=== PATIENT | female | born 1990 | race Caucasian/White ===

== ENCOUNTER 2021-03-01 14:57 | Observation (INO) | payer MEDICAID ==
[2021-03-01] MEDS ORDERED: IV RINGERS,LACTATED 1000ML 1,000 ML IV SCH (15:15)
[2021-03-01 16:03] LABS: BILIRUBIN,URINE NEGATIVE (NEG); CLARITY,URINE CLOUDY; COLOR,URINE YELLOW; NITRITE,URINE NEGATIVE (NEG); PROTEIN,URINE NEGATIVE (NEG-TRACE)
[2021-03-01 16:07] LABS: BARBITURATES NEG (NEG); BENZODIAZEPINES NEG (NEG); CANNABINOIDS NEG (NEG); COCAINE NEG (NEG); METHADONE NEG (NEG); OPIATES NEG (NEG); PHENCYCLIDINE NEG (NEG)
[2021-03-01 16:08] LABS: AMPHETAMINE/METHAMPHETAMINE NEG (NEG)
[2021-03-01 16:33] LABS: BACTERIA,URINE MODERATE /HPF (0-FEW); RBC,URINE 0 /HPF (0-2); WBC,URINE 20-40 /HPF (0-4)
[2021-03-01 16:34] LABS: AMORPHOUS SEDIMENT,UR PRESENT /HPF
[2021-03-01] MEDS ORDERED: AMPICILLIN SODIUM 1 GM in IV NORMAL SALINE 50ML 50 ML IV ONE (17:00)
[2021-03-01] MEDS ORDERED: ACETAMINOPHEN 325 MG TABLET. PO ONE (17:15)
== END 2021-03-01 18:30 | disposition home or self-care (01) ==
LOC: 3 SO LND 14:57
PROVIDERS: ADMIT Obstetrics & Gynecology; ATTEND Obstetrics & Gynecology
DX: O26.892 Other specified pregnancy related conditions, second trimester (principal); R51.9 Headache, unspecified; R19.7 Diarrhea, unspecified; Z20.822 Contact with and (suspected) exposure to COVID-19; Z3A.23 23 weeks gestation of pregnancy
CPT/HCPCS: 80307; 81001; 87086; 87426; G0378; G0379; J0290; J7120; U0003; U0005; 59025; 96365

== ENCOUNTER 2021-03-22 15:05 | Emergency (ER) | payer MEDICAID ==
[~2021-03-22] VITALS: Ht 162.6 cm; Wt 56.0 kg
--- NOTE | 2021-03-22 15:24 | PHYS DOC ---
Past Medical History Past Medical History: No Pertinent History Past Surgical History: No Surgical History Smoking Status: Never Smoker Alcohol Use: None Drug Use: None General Adult EDM: Chief Complaint: SYNCOPE HPI: HPI: 30-year-old G3, P2 approximately 6 months female presents to the emergency department complaining of syncopal episode that occurred earlier today. She states that she was walking after going to the bathroom when she passed out. She states now that she feels weak. There is no seizure-like activity witnessed. Patient otherwise feels like in her normal health. She denies any drugs or alcohol. She moved from [place] and saw an STAFFING CONSULTANT in that state and states that she had a normal ultrasound and care prior to moving to [place]. The patient denies nausea, vomiting, fever, chills, chest pain, shortness of breath, abdominal pain, urinary symptoms, cough, recent trauma, or any other complaints. Review of Systems: Review of Systems: ROS otherwise negative except for what was mentioned in HPI Heart Score: C/O Chest Pain: No Current Medications: Current Medications Medications (Trade) Dose Ordered Sig/Arash Start Time Stop Time Status Last Admin Dose Admin Sodium Chloride 1,000 ml @ 1,000 mls/hr 1X ONCE 03/22/21 15:30 03/22/21 16:29 Allergies: Allergies: Allergies Coded Allergies Type Severity Reaction Last Updated Verified No Known Drug Allergies 03/01/21 No Physical Exam: PE: Constitutional: Disheveled, no acute distress. HENT: Atraumatic, bilateral external ears normal, nose normal. Eyes: PERRLA, EOMI, conjunctiva normal, no discharge. Neck: Normal range of motion, supple, no stridor. Cardiovascular: Heart rate regular rhythm. 2+ radial pulses Lungs & Thorax: No respiratory distress, symmetrical expansion. Bilateral breath sounds clear to auscultation Abdomen: Soft, no tenderness. Gravid uterus Skin: Warm, dry. Extremities: No tenderness, no cyanosis, ROM intact, no edema. Neurologic: Alert and oriented X 3, normal motor function, normal sensory function, no focal deficits noted. Non ataxic gait. GCS 15. Psychologic: Affect normal, judgment normal, mood normal. Current Patient Data: Labs: Laboratory Tests Test 03/22/21 15:12 03/22/21 15:22 03/22/21 16:32 White Blood Count 10.3 x10^3/uL (4.0-11.0) Red Blood Count 3.34 x10^6/uL (3.50-5.40) Hemoglobin 9.6 g/dL (12.0-15.5) Hematocrit 28.4 % (36.0-47.0) Mean Corpuscular Volume 85 fL (79-100) Mean Corpuscular Hemoglobin 29 pg (25-35) Mean Corpuscular Hemoglobin Concent 34 g/dL (31-37) Red Cell Distribution Width 13.1 % (11.5-14.5) Platelet Count 351 x10^3/uL (140-400) Neutrophils (%) (Auto) 76 % (31-73) Lymphocytes (%) (Auto) 18 % (24-48) Monocytes (%) (Auto) 5 % (0-9) Eosinophils (%) (Auto) 1 % (0-3) Basophils (%) (Auto) 0 % (0-3) Neutrophils # (Auto) 7.8 x10^3/uL (1.8-7.7) Lymphocytes # (Auto) 1.8 x10^3/uL (1.0-4.8) Monocytes # (Auto) 0.5 x10^3/uL (0.0-1.1) Eosinophils # (Auto) 0.1 x10^3/uL (0.0-0.7) Basophils # (Auto) 0.0 x10^3/uL (0.0-0.2) Sodium Level 137 mmol/L (136-145) Potassium Level 3.5 mmol/L (3.5-5.1) Chloride Level 102 mmol/L (98-107) Carbon Dioxide Level 20 mmol/L (21-32) Anion Gap 15 (6-14) Blood Urea Nitrogen 4 mg/dL (7-20) Creatinine 0.8 mg/dL (0.6-1.0) Estimated GFR (Cockcroft-Gault) 84.2 BUN/Creatinine Ratio 5 (6-20) Glucose Level 123 mg/dL (70-99) Calcium Level 8.4 mg/dL (8.5-10.1) Total Bilirubin 0.2 mg/dL (0.2-1.0) Aspartate Amino Transf (AST/SGOT) 12 U/L (15-37) Alanine Aminotransferase (ALT/SGPT) 19 U/L (14-59) Alkaline Phosphatase 107 U/L (46-116) Total Protein 6.2 g/dL (6.4-8.2) Albumin 2.5 g/dL (3.4-5.0) Albumin/Globulin Ratio 0.7 (1.0-1.7) Ethyl Alcohol Level < 10 mg/dL (0-10) Glucose (Fingerstick) 114 mg/dL (70-99) Urine Collection Type Unknown Urine Color Yellow Urine Clarity Clear Urine pH 6.0 (<5.0-8.0) Urine Specific [place] 1.025 (1.000-1.030) Urine Protein Negative mg/dL (NEG-TRACE) Urine Glucose (UA) Negative mg/dL (NEG) Urine Ketones (Stick) Negative mg/dL (NEG) Urine Blood Negative (NEG) Urine Nitrite Negative (NEG) Urine Bilirubin Negative (NEG) Urine Urobilinogen Dipstick 0.2 mg/dL (0.2 mg/dL) Urine Leukocyte Esterase Negative (NEG) Urine RBC 0 /HPF (0-2) Urine WBC 1-4 /HPF (0-4) Urine Squamous Epithelial Cells Mod /LPF Urine Bacteria 0 /HPF (0-FEW) Urine Mucus Marked /LPF Urine Opiates Screen Neg (NEG) Urine Methadone Screen Neg (NEG) Urine Barbiturates Neg (NEG) Urine Phencyclidine Screen Neg (NEG) Urine Amphetamine/Methamphetamine Neg (NEG) Urine Benzodiazepines Screen Neg (NEG) Urine Cocaine Screen Neg (NEG) Urine Cannabinoids Screen Neg (NEG) Urine Ethyl Alcohol Neg (NEG) Vital Signs: Vital Signs Date Time Temp Pulse Resp B/P (MAP) Pulse Ox O2 Delivery O2 Flow Rate FiO2 03/22/21 16:04 88 16 108/66 (80) 98 Room Air 03/22/21 15:34 88 16 110/74 (86) 98 03/22/21 15:05 98.4 104 115/82 (93) 98.4 Course & Med Decision Making: Course & Med Decision Making FHT: 142 patient much improved after 2L IVF, likely dehydrated, states she is going to follow up with david rice, vitals improved, no bacteruria. will dc for patient to follow with david. return precautions discussed. IUP seen on bedside US. My Orders - BROWN,NOAH M DO Procedure Category Date Status Time Cbc W Autodiff LAB 03/22/21 Complete 15:18 Comprehensive LAB 03/22/21 Complete Metabolic Panel 15:18 Ua, Cult If Indicated LAB 03/22/21 Complete 15:18 Iv Normal Saline PHA 03/22/21 Complete 1000ml Bag (Iv Sodium 15:30 Drugs Of Abuse Ur LAB 03/22/21 Complete 15:21 Ethanol LAB 03/22/21 Complete 15:21 Iv Normal Saline PHA 03/22/21 In Process 1000ml Bag (Iv Sodium 16:45 Departure Departure Impression: Primary Impression: Dehydration Disposition: HOME / SELF CARE / HOMELESS Condition: STABLE Referrals: NO PCP (PCP) Patient Instructions: Dehydration, Adult, [id number] Additional Instructions: You were seen in the emergency department and your health condition was deemed not to require admission to the hospital. It is important to realize that we can only evaluate you during the time that you are in her department. Occasionally health conditions can worsen upon leaving the emergency department. If this were to happen, please return to and allow us the opportunity to reevaluate you. It is a pleasure to take care of your health needs. Return to the ER if your symptoms worsen, do not improve, or if you develop additional symptoms that are concerning to you NOAH MACE DO Mar 22, 2021 15:24
[2021-03-22 15:25] LABS: BASO % 0 % (0-3); EOS # 0.1 x10^3/uL (0.0-0.7); EOS % 1 % (0-3); HEMATOCRIT 28.4 % (36.0-47.0); HEMOGLOBIN 9.6 g/dL (12.0-15.5); LYMPH # 1.8 x10^3/uL (1.0-4.8); LYMPH % 18 % (24-48); MEAN CORPUSCULAR HEMOGLOBIN 29 pg (25-35); MEAN CORPUSCULAR HGB CONC 34 g/dL (31-37); MEAN CORPUSCULAR VOLUME 85 fL (79-100); MONO # 0.5 x10^3/uL (0.0-1.1); MONO % 5 % (0-9); NEUT # 7.8 x10^3/uL (1.8-7.7); NEUT % 76 % (31-73); PLATELET COUNT 351 x10^3/uL (140-400); RED BLOOD COUNT 3.34 x10^6/uL (3.50-5.40); RED CELL DISTRIBUTION WIDTH 13.1 % (11.5-14.5); WHITE BLOOD COUNT 10.3 x10^3/uL (4.0-11.0)
[2021-03-22] MEDS ORDERED: IV NORMAL SALINE 1000ML BAG 1,000 ML IV ONE ×2 (15:30→16:45)
[2021-03-22 15:32] LABS: CALCIUM 8.4 mg/dL (8.5-10.1); CREATININE 0.8 mg/dL (0.6-1.0); GFR 84.2; POTASSIUM 3.5 mmol/L (3.5-5.1)
[2021-03-22 15:38] LABS: ALBUMIN 2.5 g/dL (3.4-5.0); ALBUMIN/GLOBULIN RATIO 0.7 (1.0-1.7); TOTAL BILIRUBIN 0.2 mg/dL (0.2-1.0); TOTAL PROTEIN 6.2 g/dL (6.4-8.2)
--- NOTE | 2021-03-22 16:50 | EKG ---
[facility] [address] [place] [address] Test Date: 2021-03-22 Test Time: 15:07:36 Pat Name: AGUEDA PINEDA Department: Room: Gender: F Product Safety Associate: : 1990 Requested By: BRYAN SANCHEZ Order Number: [id number] Reading MD: Hao Prakash Measurements Intervals [place] Rate: 110 P: 26 SC: 140 QRS: 64 QRSD: 70 T: 35 QT: 326 QTc: 447 Interpretive Statements SINUS TACHYCARDIA Electronically Signed On 03-24-2021 16:47:42 CDT by Hao Prakash
[2021-03-22 17:02] LABS: BILIRUBIN,URINE NEGATIVE (NEG); CLARITY,URINE CLEAR; COLOR,URINE YELLOW; NITRITE,URINE NEGATIVE (NEG); PROTEIN,URINE NEGATIVE (NEG-TRACE); UROBILINOGEN,URINE 0.2 mg/dL (0.2 mg/dL)
[2021-03-22 17:07] LABS: BACTERIA,URINE 0 /HPF (0-FEW); RBC,URINE 0 /HPF (0-2)
[2021-03-22 17:08] LABS: BARBITURATES NEG (NEG); BENZODIAZEPINES NEG (NEG); CANNABINOIDS NEG (NEG); COCAINE NEG (NEG); METHADONE NEG (NEG); OPIATES NEG (NEG); PHENCYCLIDINE NEG (NEG)
[2021-03-22 17:09] LABS: AMPHETAMINE/METHAMPHETAMINE NEG (NEG)
[2021-03-22 17:31] VITALS: BP 100/61
== END 2021-03-22 18:06 | disposition home or self-care (01) ==
LOC: ER 15:05
DX: O99.282 Endocrine, nutritional and metabolic diseases complicating pregnancy, second trimester (principal); E86.0 Dehydration; Z3A.24 24 weeks gestation of pregnancy
CPT/HCPCS: 36415; 80053; 80307; 81001; 82962; 85025; 93005; 96360; 96361; 99284; G0480; J7030

== ENCOUNTER 2021-04-14 09:38 | Emergency (ER) | payer MEDICAID ==
[~2021-04-14] VITALS: Ht 162.6 cm; Wt 61.6 kg
[2021-04-14 09:57] VITALS: BP 134/83
[2021-04-14] MEDS ORDERED: ACETAMINOPHEN 325 MG TABLET. PO ONE (10:15)
[2021-04-14] MEDS ORDERED: LIDOCAINE 2% VISCOUS 15 ML SOLUTION. SWSW ONE (10:15)
[2021-04-14] MEDS ORDERED: AMOX1TAB61 PO (10:46)
[2021-04-14] MEDS ORDERED: BENZ11.94 MM (10:46)
--- NOTE | 2021-04-14 10:47 | PHYS DOC ---
Past Medical History Past Medical History: Other Additional Past Medical Histor: fibromyalgia Past Surgical History: No Surgical History Smoking Status: Never Smoker Alcohol Use: None Drug Use: None General Adult EDM: Chief Complaint: DENTAL PROBLEM HPI: HPI: Patient is a 30 year old A0 female who presents with 2-day history of right- sided dental pain. Patient rates her pain 10/10 radiating throughout the entire right side of her face. Patient states that she has had dental problems for several years, but has been a year since has been this bad. Patient reports she moved to the area 1 month ago from [facility]. Patient does not currently have dental care. Patient denies fever, chills, eye pain, discharge, neck swelling, difficulty swallowing, difficulty breathing, chest pain, palpitations. Patient has no other complaints at this time. Review of Systems: Review of Systems: 12 systems reviewed. ROS negative except as mentioned in HPI. Heart Score: C/O Chest Pain: No Current Medications: Current Medications Medications (Trade) Dose Ordered Sig/Arash Start Time Stop Time Status Last Admin Dose Admin Acetaminophen (Tylenol) 650 mg 1X ONCE 04/14/21 10:15 04/14/21 10:16 DC 04/14/21 10:25 650 MG Lidocaine HCl (Viscous Lidocaine) 15 ml 1X ONCE 04/14/21 10:15 04/14/21 10:16 DC 04/14/21 10:25 15 ML Allergies: Allergies: Allergies Coded Allergies Type Severity Reaction Last Updated Verified No Known Drug Allergies 03/01/21 No Physical Exam: PE: Constitutional: Well developed, well nourished, non-toxic appearance. HENT: Normocephalic, atraumatic, bilateral external ears normal, oropharynx moist, very poor dentition, right upper gums swollen and erythematous, nose normal. Eyes: PERRLA, EOMI, conjunctiva normal, no discharge. Neck: Normal range of motion, no tenderness, supple, no stridor. Cardiovascular: Heart rate regular rhythm, no murmur. Lungs & Thorax: Bilateral breath sounds clear to auscultation. Current Patient Data: Vital Signs: Vital Signs Date Time Temp Pulse Resp B/P (MAP) Pulse Ox O2 Delivery O2 Flow Rate FiO2 04/14/21 09:57 97.4 74 17 134/83 (100) 98 Room Air 97.4 Course & Med Decision Making: Course & Med Decision Making Pertinent Labs and Imaging studies reviewed. (See chart for details) Patient's dental pain is chronic in nature. At this time, there is no neck/throat or orbital involvement. Due to patient's gravid status, pain management will be topical viscous lidocaine and Tylenol. On reevaluation, patient states that her pain has improved. Patient will be provided with a list of dental clinics in the area. Scripts were sent for viscous lidocaine as well as Augmentin. Patient understands and is agreeable to discharge plan. Dragon Disclaimer: Dragon Disclaimer: This electronic medical record was generated, in whole or in part, using a voice recognition dictation system. Departure Departure Impression: Primary Impression: Dental abscess Additional Impressions: Poor dentition Chronic enamel dental caries Disposition: 01 HOME / SELF CARE / HOMELESS Condition: STABLE Referrals: NO PCP (PCP) Patient Instructions: Dental Pain, [id number] Additional Instructions: You may continue to take acetaminophen according to box instructions. Do not take more than 3000 mg in a day. Please return to the emergency department if your pain is uncontrolled at home. Scripts Benzocaine/Menthol/Zinc Chlor (Orajel 3X Toothache-Gum Gel) 11.9 Gm Gel..gram. 11.9 GM MM PRN, #1 BOTTLE Prov: BRYAN SANCHEZ 04/14/21 Amoxicillin/Potassium Clav (AUGMENTIN 875-125 TABLET) 1 Each Tablet 1 TAB PO BID for 7 Days, #14 TAB 0 Refills Please take full course of antibiotics. Prov: BRYAN SANCHEZ 04/14/21 BRYAN SANCHEZ Apr 14, 2021 10:47
== END 2021-04-14 10:52 | disposition home or self-care (01) ==
LOC: ER 09:38
DX: K00.7 Teething syndrome (principal); K04.7 Periapical abscess without sinus; K02.9 Dental caries, unspecified
CPT/HCPCS: 99283

== ENCOUNTER 2021-04-27 22:15 | Observation (INO) | payer MEDICAID ==
[~2021-04-27] VITALS: Ht 162.6 cm; Wt 63.2 kg
[~2021-04-27 22:15] MED LIST: AMOX1TAB61 PO; BENZ11.94 MM
[2021-04-27] MEDS ORDERED: IV RINGERS,LACTATED 1000ML 1,000 ML IV PRN (22:30)
[2021-04-27 23:06] LABS: BILIRUBIN,URINE NEGATIVE (NEG); CLARITY,URINE CLEAR; COLOR,URINE YELLOW; NITRITE,URINE NEGATIVE (NEG); PROTEIN,URINE 30 mg/dL (NEG-TRACE)
[2021-04-27 23:13] LABS: BARBITURATES NEG (NEG); BENZODIAZEPINES NEG (NEG); CANNABINOIDS NEG (NEG); COCAINE NEG (NEG); METHADONE NEG (NEG); OPIATES NEG (NEG); PHENCYCLIDINE NEG (NEG)
[2021-04-27 23:15] LABS: AMPHETAMINE/METHAMPHETAMINE NEG (NEG)
[2021-04-27 23:22] LABS: AMORPHOUS SEDIMENT,UR PRESENT /HPF; BACTERIA,URINE 0 /HPF (0-FEW); RBC,URINE 0 /HPF (0-2)
[2021-04-27] MEDS ORDERED: hydrOXYzine 25 MG TABLET PO PRN (23:45)
[2021-04-28] MEDS ORDERED: CALCIUM CARBONATE 500 MG TAB.CHEW PO PRN (01:00)
== END 2021-04-28 01:45 | disposition home or self-care (01) ==
LOC: 3 SO LND 22:15
PROVIDERS: ADMIT Registered Nurse; ATTEND Obstetrics & Gynecology
DX: O99.891 Other specified diseases and conditions complicating pregnancy (principal); M54.50 Low back pain, unspecified; R10.30 Lower abdominal pain, unspecified; O62.9 Abnormality of forces of labor, unspecified; Z3A.31 31 weeks gestation of pregnancy; Z79.899 Other long term (current) drug therapy
CPT/HCPCS: 59025; 80307; 81001; 87086; G0378; G0379

== ENCOUNTER 2021-05-24 18:24 | Observation (INO) | payer MEDICAID ==
[2021-05-24] MEDS ORDERED: IV RINGERS,LACTATED 1000ML 1,000 ML IV SCH (19:00)
[2021-05-24 19:09] LABS: AMNIO PT NEGATIVE
[2021-05-24 19:10] LABS: BILIRUBIN,URINE NEGATIVE (NEG); CLARITY,URINE CLEAR; COLOR,URINE YELLOW; NITRITE,URINE NEGATIVE (NEG); PROTEIN,URINE 30 mg/dL (NEG-TRACE)
[2021-05-24 19:19] LABS: AMORPHOUS SEDIMENT,UR PRESENT /HPF; BACTERIA,URINE MODERATE /HPF (0-FEW)
[2021-05-24 19:20] LABS: RBC,URINE 0 /HPF (0-2)
[2021-05-24] MEDS ORDERED: hydrOXYzine 25 MG TABLET PO PRN (19:30)
== END 2021-05-24 20:05 | disposition home or self-care (01) ==
LOC: 3 SO LND 18:24
PROVIDERS: ADMIT Registered Nurse; ATTEND Registered Nurse
DX: O62.9 Abnormality of forces of labor, unspecified (principal); O42.913 Preterm premature rupture of membranes, unspecified as to length of time between rupture and onset of labor, third trimester; O26.893 Other specified pregnancy related conditions, third trimester; R10.2 Pelvic and perineal pain; Z3A.35 35 weeks gestation of pregnancy
CPT/HCPCS: 36415; 59025; 81001; 84112; 87086; G0378; G0379

== ENCOUNTER 2021-05-24 22:56 | Observation (INO) | payer MEDICAID ==
[2021-05-24] MEDS ORDERED: IV RINGERS,LACTATED 1000ML 1,000 ML IV SCH (23:00)
[2021-05-25] MEDS ORDERED: PROMETHAZINE 12.5 MG TABLET. PO ONE (01:45)
[2021-05-25] MEDS ORDERED: MORPHINE SULFATE 10 MG/ML VIAL. IVP PRN (01:45)
--- NOTE | 2021-05-25 03:06 | RAD ---
INDICATION: Reason: ABDOMINAL PAIN / Spl. Instructions: / History: COMPARISON: None. FINDINGS: Limited focused ultrasound images are obtained of the uterus. Intrauterine is seen with movement and cardiac activity with heart beat of 135. Cephalic presentation at time of exam. Amniotic fluid index is 12.9. Anterior placenta. Estimated gestational age is 34 weeks and 6 days with estimated due date of 06/30/2021 Estimated weight 2440 g, 33rd percentile Head circumference is on the 23rd percentile Abdominal circumference 29th percentile Biparietal diameter 48 percent Femur length 17 percent IMPRESSION: * Intrauterine with positive heartbeat and estimated gestational age of 34 weeks and 6 da ys. Electronically signed by: Rodney Swift MD (05/25/2021 3:04 AM) [id number]
--- NOTE | 2021-05-25 05:04 | RAD ---
INDICATION: Reason: NEED BPP / Spl. Instructions: / History: Abdominal pain. COMPARISON: One day prior TECHNIQUE: Focused ultrasound was performed of the uterus in order to obtain a biophysical pro file. Please note that this is not a complete anatomic survey. FINDINGS: Breathin Gross Body Movement: 2 Tone: 2 Amniotic Fluid Volume 2. Cephalic presentation at time of exam. Amniotic fluid index is 11.8 Heart beat is 122 IMPRESSION: biophysical profile score is 6 out of 8. Electronically signed by: Rodney Swift MD (05/25/2021 5:01 AM) [id number]
[2021-05-25] MEDS ORDERED: hydrOXYzine 25 MG TABLET PO PRN (15:15)
[2021-05-25] MEDS ORDERED: FERROUS SULFATE 325 MG TABLET. PO SCH (17:00)
[2021-05-25] MEDS ORDERED: MAGNESIUM OXIDE 400 MG TABLET PO SCH (17:00)
== END 2021-05-25 14:00 | disposition home or self-care (01) ==
LOC: 3 SO LND 22:56
PROVIDERS: ADMIT Registered Nurse; ATTEND Registered Nurse
DX: O26.893 Other specified pregnancy related conditions, third trimester (principal); R10.30 Lower abdominal pain, unspecified; Z3A.35 35 weeks gestation of pregnancy
CPT/HCPCS: 59025; 76815; 76819; 96361; 96374; G0378; G0379; J2270; J7120; Q0169

== ENCOUNTER 2021-06-24 05:34 | Inpatient (IN) | payer SELFPAY ==
[~2021-06-24] VITALS: Ht 162.6 cm; Wt 68.5 kg
[2021-06-24] MEDS ORDERED: LIDOCAINE 1% PF 30 ML VIAL. INJ PRN (05:45)
[2021-06-24] MEDS ORDERED: 0.9 % SODIUM CHLORIDE 10 ML DISP.SYRIN. IV PRN ×2 (05:45→14:00)
[2021-06-24] MEDS ORDERED: BUTORPHANOL 2 MG/ML VIAL. IVP PRN ×2 (05:45)
[2021-06-24] MEDS ORDERED: ACETAMINOPHEN 325 MG TABLET. PO PRN ×2 (05:45→14:00)
[2021-06-24] MEDS ORDERED: OXYTOCIN 30 UNIT/500 ML PREMIX 500 ML IV PRN ×3 (05:45→14:00)
[2021-06-24] MEDS ORDERED: IV RINGERS,LACTATED 1000ML 1,000 ML IV SCH (05:45)
[2021-06-24] MEDS ORDERED: TERBUTALINE 1 MG/ML VIAL. SQ PRN (05:45)
[2021-06-24 06:50] LABS: BASO % 0 % (0-3); EOS # 0.2 x10^3/uL (0.0-0.7); EOS % 2 % (0-3); HEMOGLOBIN 8.3 g/dL (12.0-15.5); LYMPH # 2.2 x10^3/uL (1.0-4.8); LYMPH % 22 % (24-48); MEAN CORPUSCULAR HEMOGLOBIN 24 pg (25-35); MEAN CORPUSCULAR HGB CONC 33 g/dL (31-37); MEAN CORPUSCULAR VOLUME 72 fL (79-100); MONO # 0.6 x10^3/uL (0.0-1.1); MONO % 6 % (0-9); NEUT % 70 % (31-73); PLATELET COUNT 262 x10^3/uL (140-400); RED BLOOD COUNT 3.48 x10^6/uL (3.50-5.40); RED CELL DISTRIBUTION WIDTH 18.3 % (11.5-14.5)
[2021-06-24] MEDS ORDERED: fentaNYL PF VIAL 100 MCG/2 ML VIAL ONE (09:30)
[2021-06-24] MEDS ORDERED: ROPIVacaine 0.2% PF 10 ML VIAL. ONE ×2 (09:30→10:00)
[2021-06-24] MEDS ORDERED: L&D EPIDURAL SYRINGE 50 ML ONE (09:31)
[2021-06-24 09:52] LABS: BILIRUBIN,URINE NEGATIVE (NEG); CLARITY,URINE CLEAR; COLOR,URINE YELLOW; NITRITE,URINE NEGATIVE (NEG); PROTEIN,URINE NEGATIVE (NEG-TRACE); UROBILINOGEN,URINE 0.2 mg/dL (0.2 mg/dL)
[2021-06-24] MEDS ORDERED: L&D EPIDURAL 50 ML SYRINGE. ONE (10:00)
--- NOTE | 2021-06-24 10:01 | PDOC1 ---
[facility] H&P Date of Admission: Date of Admission: Jun 24, 2021 at 05:34 History of Present Illness: EDC: 06/27/21 LMP: 09/20/20 31y @ 39.4 by L=13 presents to L&D for scheduled indxn. The pt began her care in [place]. She moved to in the third trimester. Her C/S was in [place] for breech. She was oligio at 36wks. The pt denies DUPREE, changes in vision, or abd pain. 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 Alert and oriented. HEENT: Head normocephalic, atraumatic. NECK: Supple LUNGS: Clear to auscultation. HEART: RRR, S1, S2 present, pulses intact ABDOMEN: Soft, positive bowel sounds. EXTREMITIES: No cyanosis or edema. NEUROLOGIC: Normal speech, normal tone PSYCHIATRIC: Normal affect, normal mood. SKIN: No ulceration. FHT: 120s +acels/no decels/mLTV Flasher: 1-2 min SVE: 3-4/70/-3 Labs: Laboratory Tests Test 06/24/21 06:10 White Blood Count 10.0 x10^3/uL (4.0-11.0) Red Blood Count 3.48 x10^6/uL (3.50-5.40) L Hemoglobin 8.3 g/dL (12.0-15.5) L Hematocrit 25.0 % (36.0-47.0) L Mean Corpuscular Volume 72 fL (79-100) L Mean Corpuscular Hemoglobin 24 pg (25-35) L Mean Corpuscular Hemoglobin Concent 33 g/dL (31-37) Red Cell Distribution Width 18.3 % (11.5-14.5) H Platelet Count 262 x10^3/uL (140-400) Neutrophils (%) (Auto) 70 % (31-73) Lymphocytes (%) (Auto) 22 % (24-48) L Monocytes (%) (Auto) 6 % (0-9) Eosinophils (%) (Auto) 2 % (0-3) Basophils (%) (Auto) 0 % (0-3) Neutrophils # (Auto) 7.0 x10^3/uL (1.8-7.7) Lymphocytes # (Auto) 2.2 x10^3/uL (1.0-4.8) Monocytes # (Auto) 0.6 x10^3/uL (0.0-1.1) Eosinophils # (Auto) 0.2 x10^3/uL (0.0-0.7) Basophils # (Auto) 0.0 x10^3/uL (0.0-0.2) Platelet Estimate Pending Laboratory Tests 06/24/21 06:10 Laboratory Tests 06/24/21 06:10 Assessment & Plan: A/P 31y @ 39.4 by L=13 1.) Indxn on Pit 2.) [place]B - [place], records not available, drop in labs ordered 3.) Prev C/S x 1 - desires TOLAC 4.) Low-lying placenta - resolved 05/24/21 (anterior placenta) 5.) Elevated BP BP's nml to mild since admission, no s/s of preeclampsia, PIH labs ordered 6.) Fetus cat I FHT 7.) GBS neg ERROL MACK MD Jun 24, 2021 10:01
[2021-06-24 10:08] LABS: BACTERIA,URINE FEW /HPF (0-FEW); RBC,URINE 0 /HPF (0-2)
[2021-06-24 10:47] LABS: ALBUMIN 2.3 g/dL (3.4-5.0); ALBUMIN/GLOBULIN RATIO 0.5 (1.0-1.7); CALCIUM 8.1 mg/dL (8.5-10.1); CREATININE 0.6 mg/dL (0.6-1.0); GFR 116.6; POTASSIUM 3.9 mmol/L (3.5-5.1); TOTAL BILIRUBIN 0.2 mg/dL (0.2-1.0); TOTAL PROTEIN 6.5 g/dL (6.4-8.2); URIC ACID 3.4 mg/dL (2.6-6.0)
[2021-06-24 10:50] LABS: PLT ESTIMATE ADEQUATE (ADEQUATE)
[2021-06-24 10:52] LABS: ANISOCYTOSIS PRESENT; HYPOCHROMIA PRESENT; MICROCYTOSIS MOD
[2021-06-24] MEDS ORDERED: MAGNESIUM HYDROXIDE 2,400 MG/30 ML ORAL.SUSP. PO PRN (14:00)
[2021-06-24] MEDS ORDERED: PHENYLEPH/MINERAL OIL/PETROLAT RECTAL OINTMENT TUBE. RC PRN (14:00)
[2021-06-24] MEDS ORDERED: BENZOCAINE 20% TOPICAL AEROSOL SPRAY 57GM CAN. TP PRN (14:00)
[2021-06-24] MEDS ORDERED: MAG HYDROX/ALUMINUM HYD/SIMETH 30 ML ORAL.SUSP PO PRN (14:00)
[2021-06-24] MEDS ORDERED: ZOLPIDEM 5 MG TABLET. PO PRN (14:00)
[2021-06-24] MEDS ORDERED: HYDROCORTISONE 1% TOPICAL OINTMENT 30GM TUBE. TP PRN (14:00)
[2021-06-24] MEDS ORDERED: TDaP (BOOSTRIX) per PROTOCOL. MC PRN (14:00)
[2021-06-24] MEDS ORDERED: diphenhydrAMINE HCL 25 MG CAPSULE PO PRN (14:00)
[2021-06-24] MEDS ORDERED: MMR per PROTOCOL. MC PRN (14:00)
[2021-06-24] MEDS ORDERED: SIMETHICONE 80 MG TAB.CHEW PO PRN (14:00)
--- NOTE | 2021-06-24 14:19 | PDOC4 ---
VAGINAL DELIVERY DATE DATE: 06/24/21 TIME: 14:18 TIME Patient delivered a viable male infant over intact perineum at 1350. Wt 6 lb 10.7 oz. Apgars 8/9. Placenta delivered spontaneously, intact with 3VC. No lacerations noted. Good hemostasis noted. 20 U of Pit given with IVF. EBL 200 cc. WEIGHT Weight [ ] ERROL MACK MD Jun 24, 2021 14:19
[2021-06-24] MEDS: IBUPROFEN 400 MG TABLET. PO PRN (16:48)
[2021-06-24] MEDS: oxyCODONE/APAP 5/325 1 TAB TABLET PO PRN ×2 (16:48→20:54)
[2021-06-24 17:00] VITALS: BP 117/79
[2021-06-24 20:20] VITALS: BP 128/77
[2021-06-24] MEDS: DOCUSATE SODIUM 100 MG CAPSULE. PO PRN (20:53)
[2021-06-25 00:10] VITALS: BP 125/76
[2021-06-25] MEDS: IBUPROFEN 400 MG TABLET. PO PRN ×3 (01:38→17:48)
[2021-06-25 04:30] VITALS: BP 122/77
[2021-06-25] MEDS: oxyCODONE/APAP 5/325 1 TAB TABLET PO PRN (04:38)
[2021-06-25 05:48] LABS: HEMOGLOBIN 7.4 g/dL (12.0-15.5); RED BLOOD COUNT 3.2 x10^6/uL (3.50-5.40); WHITE BLOOD COUNT 9.5 x10^3/uL (4.0-11.0)
[2021-06-25] MEDS: FERROUS SULFATE 325 MG TABLET. PO SCH ×2 (07:59→17:52)
[2021-06-25] MEDS: PRENATAL MULTIVITAMIN TABLET. PO SCH (07:59)
[2021-06-25 08:10] VITALS: BP 138/84
--- NOTE | 2021-06-25 11:01 | NUR ---
SS following up with referral regarding homelessness. SS reviewed mother and infant chart and spoke with RN yesterday, 06/24/2021. SS met with father of baby in room yesterday. Mother was in the bathroom with RN at the time of meeting. Father of baby reported that they have been working with DCF and [employer] program and are being provided services. He provided contact information for DCF worker, Nimco Vazquez, , and TIES worker, Ruma Soto, . SS made contact with TIES worker yesterday. TIES is providing services in the community for mother and father. T[employer] is assisting with WIC referral and have provided car seat for infant. SS made contact with DCF worker, Nimco Vazquez, this morning. Nimco confirmed parents report that they will be staying with father of 's family until housing can be arranged. DCF assisting family with finding housing. DCF providing family with pack n play. DCF providing referral for family preservation services in the home. DCF stating that at this time there is no need to complete DCF hotline since services are already in place. DCF reported that is safe to discharge with parents when ready. Infant RN updated. SS will continue to follow as needed.
[2021-06-25 11:50] VITALS: BP 124/84
[2021-06-25 16:00] VITALS: BP 126/88
[2021-06-25 21:00] VITALS: BP 144/86
[2021-06-26] MEDS: IBUPROFEN 400 MG TABLET. PO PRN (02:00)
[2021-06-26 06:11] VITALS: BP 108/70
[2021-06-26 08:04] VITALS: BP 128/87
--- NOTE | 2021-06-26 08:50 | NUR ---
SS received phone contact from DCF worker, Nimco Vazquez, , stating that parents completed referral for [facility]eless[facility] and have been expedited to the top of the list. Nimco stated that parents should have new housing next week.
[2021-06-26] MEDS ORDERED: DIPHTH,PERTUSS(ACELL),TET TOX 0.5 ML DISP.SYRIN. VAX IM ONE (09:00)
[2021-06-26] MEDS ORDERED: FLU VACC QUAD 21-22 (6MOS+) PF 0.5 ML SYRINGE. VAX IM ONE (09:00)
[2021-06-26] MEDS: DOCUSATE SODIUM 100 MG CAPSULE. PO PRN (09:22)
[2021-06-26] MEDS: PRENATAL MULTIVITAMIN TABLET. PO SCH (09:22)
[2021-06-26] MEDS: FERROUS SULFATE 325 MG TABLET. PO SCH (09:22)
[2021-06-26] MEDS ORDERED: DOCU-109 PO (10:03)
[2021-06-26] MEDS ORDERED: FERR325T14 PO (10:03)
[2021-06-26] MEDS ORDERED: IBUP-1060 PO (10:03)
--- NOTE | 2021-06-26 12:02 | PDOC ---
[employer] PROGRESS NOTE Date of Service: DATE: 06/26/21 TIME: 12:01 Subjective: Pt with good pain control. [place] PO. Voiding. Minimal lochia Objective: Vital Signs: Vital Signs Date Time Temp Pulse Resp B/P (MAP) Pulse Ox O2 Delivery O2 Flow Rate FiO2 06/25/21 08:10 97.7 87 16 138/84 (102) 97 Room Air 97.7 Vital Signs Date Time Temp Pulse Resp B/P (MAP) Pulse Ox O2 Delivery O2 Flow Rate FiO2 06/26/21 08:04 97.9 74 16 128/87 (101) Room Air 97.9 06/26/21 06:11 100 Physical Exam: GENERAL: No apparent distress. Alert and oriented. HEENT: Head normocephalic, atraumatic. NECK: Supple LUNGS: Clear to auscultation. HEART: RRR, S1, S2 present, pulses intact ABDOMEN: Soft, positive bowel sounds. EXTREMITIES: No cyanosis or edema. NEUROLOGIC: Normal speech, normal tone PSYCHIATRIC: Normal affect, normal mood. SKIN: No ulceration. FFNT below umb No C/C/E Assessment & Plan: A/P 31y PPD #1 s/p 1.) PP doing well 2.) [place]B - [place], records not available, drop in labs wnl 3.) Preeclampsia based on BP and urine Pr/Cr of 0.374, [facility] labs wnl 4.) Anemia Hgb 8.3 -> 7.4, on Fe BID 5.) Cont PP ERROL Sandoval MD Jun 26, 2021 12:02
[2021-06-26 13:45] VITALS: BP 111/68
--- NOTE | 2021-06-26 16:20 | NUR ---
dismissed amb to fob in car with baby in car seat . Stable on feet. ss consult has been done. Rx for colace motrin and iron given to pt along with home care instructions copies. Home care instructions done
--- NOTE | 2021-06-29 12:05 | DS ---
DATE OF DISCHARGE: 06/26/2021 ADMISSION DIAGNOSES: 1. Intrauterine at 39 weeks and 4 days by LMP equal to 13-week ultrasound. 2. Induction. 3. Previous section x 1, desires trial of labor. 4. Low lying placenta, resolved. 5. Gestational hypertension. 6. GBS negative. DISCHARGE DIAGNOSES: 1. Intrauterine at 39 weeks and 4 days by LMP equal to 13-week ultrasound. 2. Induction. 3. Previous section x 1, desires trial of labor. 4. Low lying placenta, resolved. 5. Gestational hypertension. 6. GBS negative. PROCEDURE: Vaginal after . BRIEF HOSPITAL COURSE: The patient is a 31-year-old 3, para 2-0-0-2, who presented to Labor and Delivery at 39 weeks and 4 days by LMP equal to 13-week ultrasound for scheduled induction. The patient initiated her care in [place], but moved to [place] in the third trimester. The patient had a with her second in [place] for the baby being breech and oligo at 36 weeks. When the patient arrived, she had an elevated blood pressure. She denied any signs or symptoms of preeclampsia. Her initial exam was 3-4 cm dilated and was started on Pitocin. The patient ultimately delivered later that afternoon by vaginal . See delivery note for full detail. By day #2, the patient was meeting all discharge criteria and subsequently discharged home. Of note, her hemoglobin on admission was 8.3 and after delivery, was found to be 7.4. DISCHARGE INSTRUCTIONS: The patient was told not to lift anything greater than 20 pounds, have pelvic rest for [address] on narcotics. CALL IF: The patient was to call if she had fevers, chills, nausea, vomiting, abdominal pain or any additional questions or concerns. FOLLOWUP APPOINTMENT: The patient was to follow up on 08/06/2021 at 9:00 a.m. at [facility] for a visit. DISCHARGE MEDICATIONS: The patient was given a prescription for Motrin 800 mg, 30 pills; Colace 100 mg, 30 pills and ferrous sulfate 325 mg, [address]: Dedrick TID: [id number]
== END 2021-06-26 16:20 | disposition home or self-care (01) | DRG 807 ==
LOC: 3 SO LND 05:34
PROVIDERS: ADMIT Obstetrics & Gynecology; ATTEND Obstetrics & Gynecology
PROC: 10E0XZZ Delivery of Products of Conception, External Approach (ICD-10-PCS; principal; 2021-06-24)
DX: O14.94 Unspecified pre-eclampsia, complicating childbirth (principal); Z37.0 Single live birth; O34.211 Maternal care for low transverse scar from previous cesarean delivery; Z3A.39 39 weeks gestation of pregnancy; O90.81 Anemia of the puerperium; D64.9 Anemia, unspecified; Z3A.01 Less than 8 weeks gestation of pregnancy
CPT/HCPCS: 36415; 80053; 81001; 82570; 83615; 84156; 84550; 85025; 85027; 86592; 86703; 86762; 86787; 86803; 86850; 86900; 86901; 87086; 87340; J2590; J2795; J3010; J7120; G0378